=== PATIENT | female | born 1940 | race African-American/Black ===

== ENCOUNTER 2019-09-29 12:28 | Emergency (ER) | payer MEDICARE ==
[~2019-09-29] VITALS: Ht 170.2 cm; Wt 124.7 kg
--- NOTE | 2019-09-29 12:28 | NUR ---
PATIENT TO BED 8 BY EMS AT THIS TIME.
[2019-09-29 12:39] VITALS: BP 139/46
--- NOTE | 2019-09-29 12:48 | NUR ---
79 Y/O FEMALE BIBA, PRESENTED WITH H/A APPROX AN HOUR AGO. PER PT WAS ON COMPUTER WHEN H/A STARTED, PAIN 5/10, UNABLE TO DESCRIBE PAIN, BUT CAUSING NAUSEA. PT DENIES V/D. NEURO ASSESSMENT PERFORMED, NO NEURO DEFICITS. PT ALLERGIC TO [place]. MEDICAL HX OF HTN, BEGUN TAKING HTN MEDICATIONS LAST WEEK, PT COMPLIANT WITH MEDS. LAST ORAL INTAKE YESTERDAY AND TOLERATED WELL. PT DENIES HX OF STROKE. SIDE RAIL X1. FAMILY AT BEDSIDE.
--- NOTE | 2019-09-29 12:52 | NUR ---
DR CATALAN AT BEDSIDE
[2019-09-29] MEDS ORDERED: ASPIRIN 81 MG TAB.CHEW PO ONE (13:00)
[2019-09-29] MEDS ORDERED: NACL 0.9% 500 ML IV SCH (13:00)
[2019-09-29] MEDS ORDERED: LORazepam 2 MG/ML VIAL IVP ONE (13:00)
--- NOTE | 2019-09-29 13:04 | NUR ---
PT TAKEN BY PRAFUL TO CT
--- NOTE | 2019-09-29 13:13 | NUR ---
pt returned from [facility]
--- NOTE | 2019-09-29 13:30 | NUR ---
IV INSERTED AND LABS DRAWN BEDSIDE, BOLUS STARTED
--- NOTE | 2019-09-29 13:35 | NUR ---
CRISSY EMT AT BEDSIDE
[2019-09-29 13:44] LABS: BASOPHILS % (AUTO) 0.5 % (0.0-2.0); EOSINOPHILS # (AUTO) 0.3 K/uL (0-0.4); EOSINOPHILS % (AUTO) 4.3 % (0.0-4.0); HEMATOCRIT 39.2 % (36-48); HEMOGLOBIN 12.7 g/dL (12.0-16.0); LYMPHOCYTES # (AUTO) 1.4 K/uL (2.5-16.5); LYMPHOCYTES % (AUTO) 17.9 % (20.5-51.1); MEAN CORPUSCULAR HEMOGLOBIN 29 pg (27-31); MEAN CORPUSCULAR HGB CONC 33 g/dL (33-37); MEAN CORPUSCULAR VOLUME 90.2 fL (80-94); MONOCYTES # (AUTO) 0.6 K/uL (0.8-1.0); MONOCYTES % (AUTO) 7.5 % (1.7-9.3); NEUTROPHILS # (AUTO) 5.5 K/uL (1.8-7.7); NEUTROPHILS % (AUTO) 69.8 % (42.2-75.2); PLATELET COUNT (AUTO) 226 K/uL (140-450); RED BLOOD CELL COUNT(AUTO) 4.35 MIL/uL (4.20-5.40); RED CELL DISTRIBUTION WIDTH 14.9 % (11.6-13.7); WHITE BLOOD COUNT (AUTO) 7.9 K/uL (4.8-10.8)
--- NOTE | 2019-09-29 13:45 | NUR ---
ASPIRIN AND ATIVAN ADMINISTERED ORDERED
--- NOTE | 2019-09-29 13:49 | NUR ---
XRAY AT BEDSIDE
[2019-09-29 13:59] LABS: PROTHROMBIN TIME 26.2 secs (10.8-13.4)
[2019-09-29 14:03] LABS: CARBON DIOXIDE 27.8 mmol/L (21-32); CHLORIDE 106 mmol/L (98-107); GLUCOSE 88 mg/dL (74-106); POTASSIUM 3.8 mmol/L (3.5-5.1); SODIUM SERUM 143 mmol/L (136-145); UREA NITROGEN, BLOOD 20 mg/dL (7-18)
[2019-09-29 14:17] LABS: ALBUMIN 3.5 g/dL (3.4-5.0); ASPARTATE AMINOTRANSFERASE 19 U/L (15-37); TOTAL BILIRUBIN 0.3 mg/dL (0.0-1.0)
--- NOTE | 2019-09-29 14:23 | NUR ---
PT TAKEN TO RESTROOM WITH TWO PERSON ASSIST VIA WHEELCHAIR
[2019-09-29 14:43] LABS: APPEARANCE,URINE CLEAR (CLEAR); BILIRUBIN,URINE NEGATIVE (NEGATIVE); BLOOD, URINE NEGATIVE (NEGATIVE); COLOR,URINE YELLOW (YELLOW); LEUKOCYTE ESTERASE ,URINE TRACE (NEGATIVE); NITRITE, URINE NEGATIVE (NEGATIVE); UGLUCOSE NEGATIVE (NEGATIVE)
--- NOTE | 2019-09-29 14:46 | NUR ---
DR CATALAN AT BEDSIDE
[2019-09-29 14:52] LABS: RBC,URINE NONE SEEN /HPF (0-5); WBC,URINE 0-5 /HPF (0-5)
--- NOTE | 2019-09-29 15:22 | NUR ---
dr espinoza re-evaluating pt
--- NOTE | 2019-09-29 15:37 | NUR ---
pt eating upright in bed, family bedside
--- NOTE | 2019-09-29 15:43 | NUR ---
PT REPORTS PAIN IS NOW 2/10 TO HEADACHE
--- NOTE | 2019-09-29 16:50 | NUR ---
ETA FOR TRANSPORT IS 1730 FOR [facility]
--- NOTE | 2019-09-29 16:59 | NUR ---
[facility] AT BEDSIDE GETTING PT READY FOR TRANSPORT TO RECEIVING FACILITY [facility]
[2019-09-29 17:03] VITALS: BP 133/52
--- NOTE | 2019-09-29 17:03 | NUR ---
SPOKE TO RECEIVING FACILITY AT [facility] , MANDEEP RN RECEIVING NURSE OBTAINED PT'S INFORMATION. PT STABLE AND READY FOR TRANSPORT VIA AMBULANCE.
--- NOTE | 2019-09-29 17:03 | NUR ---
Note undone in EDM - 09/29/19 at 1713 by JOLANTA Patient to be transferred to [facility]. Is being transferred due to HIGHER LEVEL OF CARE. Receiving facility has accepting physician and available space. ER physician has signed transfer form. Patient or responsible republican has agreed to transfer and signed form. Patient belongings inventoried and will be sent with patient. Copy of nursing notes, lab reports, EKG, Physicians Orders and X-rays to be sent with patient. Report called to PALMA KAUFMAN at receiving facility. [facility] ambulance service has been called for transfer.
--- NOTE | 2019-09-29 17:05 | NUR ---
Patient to be transferred to [facility] ER. Is being transferred due to INSURANCE REQUEST. Receiving facility has accepting physician and available space. ER physician has signed transfer form. Patient or responsible alliance party has agreed to transfer and signed form. Patient belongings inventoried and will be sent with pts . Copy of nursing notes, lab reports, EKG, Physicians Orders and X-rays to be sent with patient. Report called to PALMA KAUFMAN at receiving facility. [facility] ambulance service AT BEDSIDE NOW
== END 2019-09-29 17:03 | disposition short-term general hospital (02) ==
LOC: MED 12:28
DX: R51 Headache (principal); R00.1 Bradycardia, unspecified; I10 Essential (primary) hypertension; E03.9 Hypothyroidism, unspecified
CPT/HCPCS: 36415; 70450; 71045; 80053; 81001; 83605; 83880; 84484; 85025; 85610; 85730; 87040; 87086; 93005; 96374; 99285; J2060; J7030; Q0092